=== PATIENT | female | born 1980 | race American Indian/Alaskan Native ===

== ENCOUNTER 2017-05-30 01:44 | Emergency (ER) | payer MEDICAID ==
[2017-05-30 01:55] VITALS: BP 151/93
[2017-05-30] MEDS ORDERED: MOTRIN ONE (05:04)
[2017-05-30] MEDS ORDERED: MOTRIN PO ONE (05:04)
[2017-05-30] MEDS ORDERED: NORCO 10/325 PO ONE (06:12)
[2017-05-30] MEDS ORDERED: ZOFRAN ODT PO ONE (06:12)
--- NOTE | 2017-05-30 06:16 | Emergency Department Report ---
ED ENT HPI - General Chief complaint: Dental/Oral Stated complaint: TOOTHACHE,EAR PAIN Time Seen by Provider: 05/30/17 05:27 Source: patient Mode of arrival: Ambulatory Limitations: No Limitations - History of Present Illness Initial comments: 37-year-old female past medical history obesity, acid reflux, hypertension, Powell 's palsy presents with complaint of right upper toothache. Patient has a severe cavity in this region. Has multiple dental cavities and periodontal disease. Patient is speaking in full sentences no trismus no drooling. Denies fevers or chills. States she has known that she has to address his cavity for some time but has been aching her severely in the last few days. Patient is awake alert and oriented 3. MD complaint: tooth pain Onset/Timin -: days(s) Location: tooth # 1 - severe cavities here Severity: moderate Severity scale (0 -10): 5 Quality: aching Context- Dental: history of dental caries, poor dental care Associated Symptoms: toothache - Related Data Previous Rx's Medication Instructions Recorded Last Taken Type Famotidine [Pepcid] 20 mg PO BID #30 tablet 08/12/15 Unknown Rx HYDROcodone/APAP 5-325 [[place] 1 each PO Q8HR PRN #12 tablet 08/12/15 Unknown Rx 5/325] Acetaminophen/Codeine [Tylenol 1 tab PO Q6H PRN #10 tab 05/30/17 Unknown Rx /Codeine # 3 tab] Amoxicillin [Trimox CAP] 500 mg PO Q8H #30 capsule 05/30/17 Unknown Rx Benzocaine [Orajel Liquid 20%] 1 ml MM Q6HR PRN #1 bottle 05/30/17 Unknown Rx Chlorhexidine Mouthwash [Peridex] 15 ml MM BID #1 bottle 05/30/17 Unknown Rx Ibuprofen [Motrin] 800 mg PO Q8HR PRN #20 tablet 05/30/17 Unknown Rx Allergies Allergy/AdvReac Type Severity Reaction Status Date / Time No Known Allergies Allergy Unverified 08/11/15 16:19 ED Dental HPI - General Chief complaint: Dental/Oral Stated complaint: TOOTHACHE,EAR PAIN Time Seen by Provider: 05/30/17 05:27 Source: patient Mode of arrival: Ambulatory Limitations: No Limitations - Related Data Previous Rx's Medication Instructions Recorded Last Taken Type Famotidine [Pepcid] 20 mg PO BID #30 tablet 08/12/15 Unknown Rx HYDROcodone/APAP 5-325 [[place] 1 each PO Q8HR PRN #12 tablet 08/12/15 Unknown Rx 5/325] Acetaminophen/Codeine [Tylenol 1 tab PO Q6H PRN #10 tab 05/30/17 Unknown Rx /Codeine # 3 tab] Amoxicillin [Trimox CAP] 500 mg PO Q8H #30 capsule 05/30/17 Unknown Rx Benzocaine [Orajel Liquid 20%] 1 ml MM Q6HR PRN #1 bottle 05/30/17 Unknown Rx Chlorhexidine Mouthwash [Peridex] 15 ml MM BID #1 bottle 05/30/17 Unknown Rx Ibuprofen [Motrin] 800 mg PO Q8HR PRN #20 tablet 05/30/17 Unknown Rx Allergies Allergy/AdvReac Type Severity Reaction Status Date / Time No Known Allergies Allergy Unverified 08/11/15 16:19 ED Review of Systems ROS: Stated complaint: TOOTHACHE,EAR PAIN Other details as noted in HPI Constitutional: denies: chills, fever Eyes: denies: eye pain, eye discharge, vision change ENT: dental pain. denies: ear pain, throat pain Respiratory: denies: cough, shortness of breath, wheezing Cardiovascular: denies: chest pain, palpitations Endocrine: no symptoms reported Gastrointestinal: denies: abdominal pain, nausea, diarrhea Genitourinary: denies: urgency, dysuria, discharge Musculoskeletal: denies: back pain, joint swelling, arthralgia Skin: denies: rash, lesions Neurological: denies: headache, weakness, paresthesias Psychiatric: denies: anxiety, depression Hematological/Lymphatic: denies: easy bleeding, easy bruising ED Past Medical Hx - Past Medical History Previous Medical History?: Yes Hx Hypertension: Yes Additional medical history: BELLS PALSY - Surgical History Past Surgical History?: Yes Additional Surgical History: BREAST REDUCTION - Social History Smoking Status: Never Smoker Substance Use Type: None - Medications Home Medications: Home Medications Medication Instructions Recorded Confirmed Last Taken Type Famotidine [Pepcid] 20 mg PO BID #30 tablet 08/12/15 Unknown Rx HYDROcodone/APAP 5-325 [[place] 1 each PO Q8HR PRN #12 tablet 08/12/15 Unknown Rx 5/325] Acetaminophen/Codeine [Tylenol 1 tab PO Q6H PRN #10 tab 05/30/17 Unknown Rx /Codeine # 3 tab] Amoxicillin [Trimox CAP] 500 mg PO Q8H #30 capsule 05/30/17 Unknown Rx Benzocaine [Orajel Liquid 20%] 1 ml MM Q6HR PRN #1 bottle 05/30/17 Unknown Rx Chlorhexidine Mouthwash [Peridex] 15 ml MM BID #1 bottle 05/30/17 Unknown Rx Ibuprofen [Motrin] 800 mg PO Q8HR PRN #20 tablet 05/30/17 Unknown Rx ED Physical Exam - General Limitations: No Limitations General appearance: alert, in no apparent distress - Head Head exam: Present: atraumatic, normocephalic - Eye Eye exam: Present: normal appearance, PERRL, EOMI - ENT ENT exam: Present: mucous membranes moist - Expanded ENT Exam Expanded Teeth exam: Present: dental tenderness # 1 - Dental Tenderness (dental cavities here) - Neck Neck exam: Present: normal inspection - Respiratory Respiratory exam: Present: normal lung sounds bilaterally. Absent: respiratory distress - Cardiovascular Cardiovascular Exam: Present: regular rate, normal rhythm. Absent: systolic murmur, diastolic murmur, rubs, gallop - GI/Abdominal GI/Abdominal exam: Present: soft, normal bowel sounds - Extremities Exam Extremities exam: Present: normal inspection - Back Exam Back exam: Present: normal inspection - Neurological Exam Neurological exam: Present: alert, oriented X3 - Psychiatric Psychiatric exam: Present: normal affect, normal mood - Skin Skin exam: Present: warm, dry, intact, normal color. Absent: rash ED Course Vital Signs 05/30/17 05/30/17 01:46 01:52 Temperature 98.6 F 98.6 F Pulse Rate 99 H 99 H Respiratory 18 17 Rate Blood Pressure 151/93 151/93 O2 Sat by Pulse 96 96 Oximetry ED Medical Decision Making - Medical Decision Making A/P: dental cavities, toothache 1- Motrin when necessary, amoxicillin ten-day course, Orajel when necessary, Peridex mouthwash daily basis, short course codeine when necessary, short course Zofran when necessary 2- I provided patient with information for multiple dental clinics to follow up and stressed the importance of dental follow-up as he has multiple cavities that require dental fixation or instrumentation 3- no clinical signs of facial abscess, no Omid's angina, no induration or cellulitis of floor of mouth or tongue 4- patient able to tolerate by mouth before discharge 5- no signs of facial infection. Advised patient that if she does not take antibiotics with follow-up with a dentist as soon as possible that a can result in potentially serious or dangerous infection to develop in jaw or face. Patient states that he understood these instructions. I advised patient to return to the ED for any persistent unrelenting nausea or vomiting fever or chills or headaches. Critical care attestation.: If time is entered above; I have spent that time in minutes in the direct care of this critically ill patient, excluding procedure time. ED Disposition Clinical Impression: Dental cavities, Toothache Disposition: DC- TO HOME OR SELFCARE Is pt being admited?: No Does the pt Need Aspirin: No Condition: Stable Instructions: Dental Caries (ED), Toothache (ED) Prescriptions: Acetaminophen/Codeine [Tylenol /Codeine # 3 tab] 1 tab PO Q6H PRN #10 tab PRN Reason: Toothache Amoxicillin [Trimox CAP] 500 mg PO Q8H #30 capsule Benzocaine [Orajel Liquid 20%] 1 ml MM Q6HR PRN #1 bottle PRN Reason: Toothache Chlorhexidine Mouthwash [Peridex] 15 ml MM BID #1 bottle Ibuprofen [Motrin] 800 mg PO Q8HR PRN #20 tablet PRN Reason: Toothache Referrals: [facility] [Outside] - 3-5 Days Forms: Accompanied Note, Work/School Release Form(ED) Time of Disposition: 06:16
== END 2017-05-30 06:20 | disposition home or self-care (01) ==
LOC: ED 01:44
DX: K02.9 Dental caries, unspecified (principal); I10 Essential (primary) hypertension
CPT/HCPCS: 99282; Q0162

== ENCOUNTER → 2018-06-13 | Outpatient (CLI) | payer MEDICAID | END | disposition home or self-care (01) | LOC: SLR 11:00 | PROVIDERS: ATTEND Otolaryngology | DX: G47.33 Obstructive sleep apnea (adult) (pediatric) (principal); R40.0 Somnolence; E66.9 Obesity, unspecified; I10 Essential (primary) hypertension | CPT/HCPCS: 95811 ==

== ENCOUNTER 2020-02-11 16:41 | Emergency (ER) | payer MEDICAID ==
[2020-02-11 20:15] VITALS: BP 148/86
--- NOTE | 2020-02-11 20:38 | Emergency Department Report ---
ED Back Pain/Injury HPI - General Chief Complaint: Back Pain/Injury Stated Complaint: BACK PAIN Time Seen by Provider: 02/11/20 20:35 Source: patient Limitations: No Limitations - History of Present Illness Initial Comments: This is a 39-year-old female with no prior medical history sciatica who presents the ED complaining of lower back buttock pain that got worse 2 days ago. Patient describes pain as throbbing aching burning sensation radiating to bilateral thighs. Patient states that she has a sciatica pain for about 16 years. Patient states that pain is about 8 out of 10 intensity and she was worried that it could be her kidneys. Patient also states that she has noted dark-colored urine. She denies fever/dysuria/chest pain/shortness of breath or abdominal pain. MD Complaint: back pain - Related Data Previous Rx's Medication Instructions Recorded Last Taken Type Famotidine [Pepcid] 20 mg PO BID #30 tablet 08/12/15 Unknown Rx HYDROcodone/APAP 5-325 [[place] 1 each PO Q8HR PRN #12 tablet 08/12/15 Unknown Rx 5/325] Amoxicillin [Trimox CAP] 500 mg PO Q8H #30 capsule 05/30/17 Unknown Rx Benzocaine [Orajel Liquid 20%] 1 ml MM Q6HR PRN #1 bottle 05/30/17 Unknown Rx Chlorhexidine Mouthwash [Peridex] 15 ml MM BID #1 bottle 05/30/17 Unknown Rx Acetaminophen/Codeine [Tylenol 1 tab PO Q6H PRN #10 tab 02/11/20 Unknown Rx /Codeine # 3 tab] Ibuprofen [Motrin 800 MG tab] 800 mg PO Q8HR PRN #20 tablet 02/11/20 Unknown Rx Sulfamethoxazole/Trimethoprim 1 each PO BID #14 tablet 02/11/20 Unknown Rx [Bactrim DS TAB] Allergies Allergy/AdvReac Type Severity Reaction Status Date / Time No Known Allergies Allergy Unverified 08/11/15 16:19 ED Review of Systems ROS: Stated complaint: BACK PAIN Other details as noted in HPI Comment: All other systems reviewed and negative ED Past Medical Hx - Past Medical History BELLS PALSY ED Back Pain Physical Exam - Exam General: Vital signs noted. No distress. Alert and acting appropriately. Back/Abdomen: No Abdominal Tenderness, No Perithoracic Tenderness, No Perilumbar Tenderness, No Sacroiliac Tenderness, No Flank Tenderness, No Straight Leg Raise Pain Neuro: Yes Normal Sensation, Yes Normal DTR's, Yes Normal Gait, No Motor Weakness ED Course Vital Signs 02/11/20 17:40 Temperature 97.7 F Pulse Rate 94 H Respiratory 19 Rate Blood Pressure 148/86 O2 Sat by Pulse 94 Oximetry ED Medical Decision Making - Radiology Data 39-year-old female presents to ED with lumbar radiculopathy ED course: Vital signs are normal patient is in no acute distress Discussed with patient follow-up with primary care physician. Discussed the patient and take medications as prescribed. Patient has no neurological deficit. Patient is alert and oriented 3 and understands all instructions given. Discussed follow-up with neurology/orthopedic doctor. Patient has a neurological deficit and understands all instructions given. I discussed with patient if she has any worsening or new symptoms she may return to the ED. Critical care attestation.: If time is entered above; I have spent that time in minutes in the direct care of this critically ill patient, excluding procedure time. ED Disposition Clinical Impression: Lumbar radiculopathy, Sciatica Disposition: - TO HOME OR SELFCARE Is pt being admited?: No Does the pt Need Aspirin: No Condition: Stable Instructions: Radicular Pain, Neuropathic Pain, Sciatica Additional Instructions: Make sure to follow up with the primary care physician as discussed. Take all your medications as you've been prescribed. If you have any worsening symptoms or develop new symptoms please return to ED immediately. Prescriptions: Sulfamethoxazole/Trimethoprim [Bactrim DS TAB] 1 each PO BID #14 tablet Ibuprofen [Motrin 800 MG tab] 800 mg PO Q8HR PRN #20 tablet PRN Reason: Toothache Acetaminophen/Codeine [Tylenol /Codeine # 3 tab] 1 tab PO Q6H PRN #10 tab PRN Reason: Toothache Referrals: PRIMARY MD MARLENE [Primary Care Provider] - 3-5 Days JESSY APARICIO MD [Staff Physician] - 3-5 Days [facility] [Outside] - 3-5 Days [facility] [Provider Group] - 3-5 Days Forms: Work/School Release Form(ED) Time of Disposition: 22:05
== END 2020-02-11 21:00 | disposition home or self-care (01) ==
LOC: ED 16:41
DX: M54.16 Radiculopathy, lumbar region (principal); M54.32 Sciatica, left side; M54.31 Sciatica, right side
CPT/HCPCS: 99281

== ENCOUNTER 2020-06-16 06:05 | Day surgery (SDC) | payer MEDICAID ==
[2020-06-16] MEDS ORDERED: SODIUM CHLORIDE 0.9% 1000 ML 1,000 ML IV SCH (07:00)
[2020-06-16] MEDS ORDERED: WATER FOR IRRIG STERILE 1,000 ML BOTTLE ONE (07:35)
[2020-06-16] MEDS ORDERED: WATER FOR IRRIG STERILE 250 ML BOTTLE IR ONE (07:35)
--- NOTE | 2020-06-16 07:38 | Anesthesia Consultation ---
Anesthesia Consult and Med Hx Date of service: 06/16/20 - Airway Anesthetic Teeth Evaluation: Good ROM Head & Neck: Adequate Mental/Hyoid Distance: Adequate Mallampati Class: Class II Intubation Access Assessment: Probably Good - Pulmonary Exam CTA: Yes - Cardiac Exam Cardiac Exam: RRR - Pre-Operative Health Status ASA Pre-Surgery Classification: ASA3 Proposed Anesthetic Plan: MAC - Pulmonary Hx Sleep Apnea: Yes (cpap) - Central Nervous System Hx Back Pain: Yes - Endocrine Hx Hypothyroidism: Yes
--- NOTE | 2020-06-16 07:40 | Anesthesia Day of Surgery ---
Anesthesia Day of Surgery - Day of Surgery Patient Examined: Yes Patient H&P Reviewed: Yes Patient is NPO: Yes
[2020-06-16] MEDS ORDERED: propofoL 200 MG/20 ML VIAL IV ONE (07:41)
[2020-06-16] MEDS ORDERED: LIDOCAINE MPF (2%) 20 MG/1 ML VIAL 5 ML ONE (07:43)
[2020-06-16] MEDS ORDERED: KETAMINE/STERILE WATER 50 MG/ML SYRINGE ONE (07:43)
[2020-06-16] MEDS ORDERED: MIDAZOLAM 2 MG/2 ML INJ ONE (07:43)
--- NOTE | 2020-06-16 08:04 | Operative Report ---
Operative Report Operative Report: DATE: 06/16/2020 SURGERY: Upper endoscopy. SURGEON: Jeremías Galicia M.D. PROCEDURE: EGD with biopsy PRE OP DX: morbid obesity, GERD POST OP DX: morbid obesity, GERD TYPE OF ANESTHESIA: MAC. ESTIMATED BLOOD LOSS: None. COMPLICATIONS: None. SPECIMENS REMOVED: antral biopsy FINDINGS: 1. Small hiatal hernia. 2. antral gastritis INDICATIONS:INDICATION FOR PROCEDURE: Patient is a 40-year-old female with a long history of morbid obesity. She is planned to have a weight loss procedure and is here for preoperative planning EGD. PROCEDURE DETAILS: After consent was reviewed, patient was taken back to the operating room where patient was placed in the left lateral decubitus position and a bite block was placed in the mouth. After a time-out was called, MAC anesthesia was initiated. I then passed the endoscope into her oropharynx, into her esophagus, visualized the entire esophagus, which was all within normal limits. Z-line was noted to about 40cm from incisors. I then visualized the stomach and the first portion of the duodenum and there were no abnormalities I could clearly visualize except for antral gastritis. A cold forceps biopsy of the antrum was taken and will be sent to pathology to evaluate for H.pylori. I then retroflexed the scope in the stomach and visualized the hiatus and I could see a small hiatal hernia. I then desufflated the stomach and removed the endoscope. Patient tolerated procedure well and was transferred to recovery room in good and stable condition.
--- NOTE | 2020-06-16 08:06 | Discharge Summary ---
Providers - Providers Date of Admission: 06/16/2020 Date of discharge: 06/16/20 Attending physician: ROOPA STEWART MD Primary care physician: ACCOUNTING CLERK Hospitalization Reason for admission: pre-op egd fo bariatric surgery Condition: Good Procedures: egd w/bx Hospital course: Pt presented for a pre-op EGD as part of planning for up coming bariatric surgery. Procedure was uneventful and pt recovered well and was discharged to home. Disposition: DC- TO HOME OR SELFCARE Final Discharge Diagnosis (Prints w/discharge instructions): morbid obesity, gerd Core Measure Documentation - Palliative Care Palliative Care/ Comfort Measures: Not Applicable - Core Measures Any of the following diagnoses?: none Exam - Physical Exam Narrative exam: unchanged from pre-op Plan Activity: advance as tolerated Diet: low carbohydrate Follow up with: PRIMARY MD MARLENE [Primary Care Provider] - 7 Days
[2020-06-16 08:18] VITALS: BP 146/90
--- NOTE | 2020-06-16 09:11 | Post Anesthesia Evaluation ---
- Post Anesthesia Evaluation Patient Participated: Yes Airway Patent: Yes Stable Respiratory Function: Yes Nausea/Vomiting: No Temp > 96.8F: Yes Pain Manageable: Yes Adequeate Hydration: Yes Anesthesia Complications: No
== END 2020-06-16 06:06 | disposition home or self-care (01) ==
LOC: GIO 06:05
PROVIDERS: ATTEND Surgery
DX: K21.9 Gastro-esophageal reflux disease without esophagitis (principal); E66.01 Morbid (severe) obesity due to excess calories; K44.9 Diaphragmatic hernia without obstruction or gangrene; K29.50 Unspecified chronic gastritis without bleeding; B96.81 Helicobacter pylori [H. pylori] as the cause of diseases classified elsewhere; G47.30 Sleep apnea, unspecified; E03.9 Hypothyroidism, unspecified; Z98.890 Other specified postprocedural states; Z79.899 Other long term (current) drug therapy; Z68.43 Body mass index [BMI] 50.0-59.9, adult
CPT/HCPCS: 43239; 81025; 88305; 88342; J2250; J2704; J3490; J7030

== ENCOUNTER 2020-06-17 10:43 | Outpatient (CLI) | payer MEDICAID ==
[2020-06-17 11:20] LABS: Basophils % (Auto) 0.3 % (0.0-1.8); Eosinophils # (Auto) 0.1 K/mm3 (0.0-0.4); Eosinophils % (Auto) 1.5 % (0.0-4.3); Hematocrit 34.9 % (30.3-42.9); Hemoglobin 11.2 gm/dl (10.1-14.3); Lymphocytes # (Auto) 1.6 K/mm3 (1.2-5.4); Lymphocytes % (Auto) 37.7 % (13.4-35.0); Mean Corpuscular HGB Conc 32 % (30-34); Monocytes # (Auto) 0.3 K/mm3 (0.0-0.8); Monocytes % (Auto) 6.5 % (0.0-7.3); Platelet Count 289 K/mm3 (140-440); Red Blood Count 5.25 M/mm3 (3.65-5.03)
[2020-06-17 11:21] LABS: Mean Corpuscular Volume 67 fl (79-97)
[2020-06-17 11:41] LABS: % Iron Saturation 8.55 %; Alanine Aminotransferase 8 units/L (7-56); Albumin 3.2 g/dL (3.9-5); BUN/Creatinine Ratio 11; Blood Urea Nitrogen 9 mg/dL (7-17); Calcium 8.3 mg/dL (8.4-10.2); Chol/HDL Ratio 4.35 %; HDL Cholesterol 37 mg/dL (40-59); Hemolysis Index 4; Iron 30 ug/dL (37-170); LDL Cholesterol,Direct 120 mg/dL (50-130); Total Iron Binding Capacity 351 mcg/dL (250-450)
== END 2020-06-17 10:44 | disposition home or self-care (01) ==
LOC: LAB 10:43
PROVIDERS: ATTEND Surgery
DX: E11.9 Type 2 diabetes mellitus without complications (principal); K30 Functional dyspepsia; E66.01 Morbid (severe) obesity due to excess calories
CPT/HCPCS: 36415; 80053; 80061; 82306; 82607; 82728; 83036; 83550; 84443; 85025; 85730

== ENCOUNTER 2020-10-01 10:16 | Outpatient (CLI) | payer MEDICAID ==
[2020-10-01 11:17] LABS: Basophils % (Auto) 0.6 % (0.0-1.8); Eosinophils # (Auto) 0.1 K/mm3 (0.0-0.4); Eosinophils % (Auto) 1.4 % (0.0-4.3); Hematocrit 34.3 % (30.3-42.9); Hemoglobin 10.9 gm/dl (10.1-14.3); Lymphocytes # (Auto) 2.1 K/mm3 (1.2-5.4); Lymphocytes % (Auto) 41.8 % (13.4-35.0); Mean Corpuscular HGB Conc 32 % (30-34); Monocytes # (Auto) 0.4 K/mm3 (0.0-0.8); Monocytes % (Auto) 7.8 % (0.0-7.3); Platelet Count 266 K/mm3 (140-440); Red Blood Count 5.02 M/mm3 (3.65-5.03)
[2020-10-01 11:25] LABS: Alanine Aminotransferase 11 units/L (7-56); Albumin 3.5 g/dL (3.9-5); Blood Urea Nitrogen 7 mg/dL (7-17); Calcium 9.3 mg/dL (8.4-10.2); Hemolysis Index 3; Iron 30 ug/dL (37-170)
[2020-10-01 11:27] LABS: BUN/Creatinine Ratio 10
[2020-10-01 11:41] LABS: Mean Corpuscular Volume 68 fl (79-97); Red Cell Distribution Width 20.6 % (13.2-15.2)
[2020-10-01 12:02] LABS: INR 1.28 (0.87-1.13)
[2020-10-01 12:03] LABS: Partial Thromboplastin Time 24.3 Sec. (24.2-36.6)
== END 2020-10-01 10:17 | disposition home or self-care (01) ==
LOC: LAB 10:16
PROVIDERS: ATTEND Internal Medicine
DX: Z01.810 Encounter for preprocedural cardiovascular examination (principal); E11.9 Type 2 diabetes mellitus without complications; E61.1 Iron deficiency; E03.9 Hypothyroidism, unspecified; E66.01 Morbid (severe) obesity due to excess calories
CPT/HCPCS: 36415; 80053; 82652; 82728; 83036; 83540; 84443; 85025; 85610; 85730

== ENCOUNTER 2020-12-07 09:17 | Outpatient (CLI) | payer MEDICAID ==
--- NOTE | 2020-12-07 11:13 | XRay Report ---
CHEST 2 VIEWS INDICATION / CLINICAL INFORMATION: MORBID OBESITY. COMPARISON: None available. FINDINGS: SUPPORT DEVICES: None. HEART / MEDIASTINUM: No significant abnormality. LUNGS / PLEURA: No significant pulmonary or pleural abnormality. No pneumothorax. ADDITIONAL FINDINGS: No significant additional findings. IMPRESSION: 1. No acute findings. Signer Name: Alejandro Caraballo MD Signed: 12/07/2020 11:09 AM Workstation Name: [id number]
--- NOTE | 2020-12-07 11:48 | Fluoroscopy Report ---
BARIUM SWALLOW Indication: MORBID OBESITY. Technique: Single and double contrast barium technique utilized to evaluate the esophagus. FINDINGS: To begin the exam, swallowing was evaluated in the lateral position under direct fluorosco py. Swallowing was normal. No mucosal irregularity, mass, mass effect, or critical stenosis. There were no abnormal tertiary c ontractions as seen with dysmotility. No gastroesophageal reflux. IMPRESSION: Unremarkable exam. Fluoroscopic time: 0.7 minutes Number of fluoroscopic images: 20 Signer Name: Robin Sheridan Jr, MD Signed: 12/07/2020 11:43 AM Workstation Name: [id number]
== END 2020-12-07 09:18 | disposition home or self-care (01) ==
LOC: FLUORO 09:17
PROVIDERS: ATTEND Surgery
DX: E66.01 Morbid (severe) obesity due to excess calories (principal)
CPT/HCPCS: 71046; 74220

== ENCOUNTER 2021-03-22 09:15 | Inpatient (IN) | payer MEDICAID ==
[2021-03-18 11:29] LABS: Hematocrit 38.7 % (30.3-42.9); Hemoglobin 12.2 gm/dl (10.1-14.3); Mean Corpuscular HGB Conc 31 % (30-34); Platelet Count 259 K/mm3 (140-440); Red Blood Count 5.58 M/mm3 (3.65-5.03); Red Cell Distribution Width 19.6 % (13.2-15.2)
[2021-03-18 11:30] LABS: Mean Corpuscular Volume 69 fl (79-97)
[2021-03-18 11:47] LABS: Alanine Aminotransferase 16 units/L (7-56); Albumin 3.8 g/dL (3.9-5); Blood Urea Nitrogen 10 mg/dL (7-17); Calcium 8.7 mg/dL (8.4-10.2); Hemolysis Index 0
[2021-03-18 12:02] LABS: BUN/Creatinine Ratio 14
--- NOTE | 2021-03-18 13:53 | Anesthesia Consultation ---
Anesthesia Consult and Med Hx Date of service: 03/22/21 - Airway Anesthetic Teeth Evaluation: Poor (Broken) ROM Head & Neck: Adequate Mental/Hyoid Distance: Adequate Mallampati Class: Class IV Intubation Access Assessment: Possibly Difficult - Pre-Operative Health Status ASA Pre-Surgery Classification: ASA3 Proposed Anesthetic Plan: General - Pulmonary Hx Smoking: No (Used to vape) Hx Respiratory Symptoms: No (+2FS; walks daily) Hx Sleep Apnea: Yes - Cardiovascular System Hx Hypertension: Yes Hx Coronary Artery Disease: No - Central Nervous System Hx Back Pain: Yes Hx Psychiatric Problems: No - Gastrointestinal Hx Gastroesophageal Reflux Disease: Yes (with tomato sauce) - Endocrine Hx Non-Insulin Dependent Diabetes: Yes (PRE) Hx Thyroid Disease: Yes Hx Hypothyroidism: Yes - Hematic Hx Anemia: Yes - Other Systems Hx Alcohol Use: Yes (Occas) Hx Cancer: No Hx Obesity: Yes - Additional Comments Anesthesia Medical History Comments: Chart/clearances reviewed
[~2021-03-22 09:15] MED LIST: ACETAMINOPHEN IV 1,000 MG/100 ML BOTTLE IV NR; ENOXAPARIN 40 MG/0.4 ML INJ SUB-Q NR; GABAPENTIN 500 MG/10 ML ORAL LIQD PO NR; LACTATED RINGERS 1,000 ML IV SCH; MIDAZOLAM 2 MG/2 ML INJ IV NR; SCOPOLAMINE TRANSDERMAL PATCH 72 HR TD NR; methOCARBAMOL 1,000 MG in SODIUM CHLORIDE 0.9% 250ML 250 ML IV ONE; metroNIDAZOLE/NS 500 MG/100 ML 500 MG/100 ML BAG IV NR
[2021-03-22] MEDS ORDERED: ONDANSETRON 4 MG/2 ML INJ IV PRN (09:24)
--- NOTE | 2021-03-22 09:24 | Anesthesia Day of Surgery ---
Anesthesia Day of Surgery - Day of Surgery Patient Examined: Yes Patient H&P Reviewed: Yes Patient is NPO: Yes
[2021-03-22] MEDS ORDERED: BUPIVACAINE/PF (0.25%) 2.5 MG/ML 30 ML VIAL INFILTRATI ONE ×2 (11:02→15:03)
[2021-03-22] MEDS ORDERED: LIDOCAINE 2%/EPINEPHRINE 1:100,000 VIAL (20 ML) INFILTRATI ONE (11:02)
[2021-03-22] MEDS ORDERED: LIDOCAINE 1%/EPINEPHRINE 1:100,000 VIAL (20 ML) INFILTRATI ONE (11:03)
[2021-03-22] MEDS ORDERED: SUGAMMADEX SODIUM 200 MG/2 ML VIAL IV ONE (13:53)
[2021-03-22] MEDS ORDERED: MAGNESIUM SULFATE 4 GM/100 ML BAG IV ONE (13:54)
[2021-03-22] MEDS ORDERED: ROCURONIUM 50 MG/5 ML INJ IV ONE (13:58)
[2021-03-22] MEDS ORDERED: LIDOCAINE MPF (2%) 20 MG/1 ML VIAL 5 ML ONE (13:58)
[2021-03-22] MEDS ORDERED: ONDANSETRON 4 MG/2 ML INJ ONE (13:58)
[2021-03-22] MEDS ORDERED: dexAMETHasone 20 MG/5 ML VIAL ONE (13:58)
[2021-03-22] MEDS ORDERED: KETOROLAC 30 MG/1 ML INJ ONE (13:58)
[2021-03-22] MEDS ORDERED: KETAMINE/STERILE WATER 50 MG/ML SYRINGE ONE (14:10)
[2021-03-22] MEDS ORDERED: MIDAZOLAM 2 MG/2 ML INJ ONE (14:58)
[2021-03-22] MEDS ORDERED: LIDOCAINE (1%) 10 MG/1 ML VIAL 20 ML MDV INFILTRATI ONE (15:03)
[2021-03-22] MEDS ORDERED: SODIUM CHLORIDE 0.9% IRR 1,500 ML BOTTLE IR ONE (15:03)
[2021-03-22] MEDS ORDERED: propofoL 200 MG/20 ML VIAL IV ONE ×2 (15:48)
[2021-03-22] MEDS ORDERED: METOCLOPRAMIDE 10 MG/2 ML INJ IV PRN (16:28)
[2021-03-22] MEDS ORDERED: MORPHINE 2 MG/1 ML INJ IV PRN (16:28)
[2021-03-22] MEDS ORDERED: hydrALAZINE 20 MG/1 ML INJ IV PRN (16:28)
[2021-03-22] MEDS ORDERED: HYDROmorphone 1 MG/1 ML INJ IV PRN (16:28)
[2021-03-22] MEDS ORDERED: HYDROcodone/Acetaminophen 7.5-325MG-15ML ORAL LIQD PO PRN (16:28)
[2021-03-22] MEDS ORDERED: SIMETHICONE 80 MG CHEW TAB PO PRN (16:28)
--- NOTE | 2021-03-22 16:39 | Operative Report ---
Operative Report Operative Report: DATE:03/22/2021 Surgeon: Jeremías Galicia MD Outside Medical Sales Representative surgeon: Lizzeth Krishna CSA MD Pre-op Dx: morbid obesity Post-op Dx: morbid obesity Procedure: 1. laparoscopic sleeve gastrectomy, Anesthesia: GETA, TAP block EBL: <10ml Specimen: gastric remnant Complication: none immediate Indication: 40 year old female with a history of morbid obesity . Pt is here for sleeve gastrectomy for weight loss to achieve healthier weight and improve or resolve her co-morbidities. She expressed understanding of the risks and benefits. PROCEDURE IN DETAIL: After consent was reviewed, patient was taken back to the operating room, where patient was placed supine on the bed with both arms out. The patient's legs were doubly strapped to the bed. Patient had a foot board in place. Patient had a body warmer placed by anesthesia. General anesthesia was induced with successful endotracheal intubation. Patient was then prepped and draped in normal sterile surgical fashion. After a time-out was called, I made a stab incision in the left subcostal area and placed a Veress needle through this incision and insufflated the abdomen to 18 mmHg pressure. I then counted down a handsbreadth below the xiphoid process in the midline and slightly left lateral injected local anesthetic and made about 1 cm transverse incision. I then used a 5-mm Optiview trocar to enter into the abdomen. There was no gross injury to any intra-abdominal structures. I then placed a 30-degree scope through this port and inspected the abdomen. I then placed a 5-mm port in the right upper quadrant, and 1 epigastric area below the costovertebral angle. I then placed a 15-mm port about a handsbreadth in the right mid abdomen. After which a 5mm port was placed in left upper quadrant port along the anterior axillary line in a similar fashion. A liver retractor was placed to the epigastric port to elevate the left lateral lobe and liver. The anterior gastric fat pad was excised. Starting approximately 6 cm proximal to the pylorus, using an enseal device the short gastrics were taken all the way to the left randall. Once the lateral portion of the stomach was mobile anesthesia passed a 40 Maori bougie along the medial aspect to act as a stent. Using serial firings of endoscopic stapler to gold, followed by 4 blue, the lateral portion of the stomach was transected making sure to did not close to the 2 cm to the incisura. All staple loads were supported with Ethicon buttress strips. The sleeve stomach was seen to be wit hout kink obstruction or twisting. The pressure was decreased to 10 mmHg. The staple line was inspected for approximately 5 minutes. There was no significant bleeding appreciated except for a slight loose at the most distal portion of the staple line. Bleeding was minimal and easily controlled with minimal cautery. Vistaseal was then sprayed along the entirety of the staple line. The liver retractor was removed. This was after the gastric remnant was grasped and pulled into the 15 mm trocar site. The stomach was extracted via the 15 mm trocar site. After the fascia had to be stretched with a Catie clamp to easily remove the stomach, the fascia was closed using a erwin ronda device at the level of the fascia with an 0 PDS. trocars were removed under direct visualization. A TAP block was performed in transverse abdominis plane at the mid axillary line bilaterally using 60cc of 0.25% marcaine. All skin incisions were closed with 4-0 Monocryl followed by Dermabond. Patient was awoken, extubated, and taken to recovery stable condition. All counts were correct.
[2021-03-22] MEDS: HYDROmorphone 1 MG/1 ML INJ IV PRN ×2 (16:40→16:50)
[2021-03-22] MEDS ORDERED: metroNIDAZOLE/NS 500 MG/100 ML 500 MG/100 ML BAG IV SCH ×2 (17:00→18:00)
[2021-03-22] MEDS ORDERED: ceFAZolin/NS 1 GM/50 ML 1 GM/50 ML BAG IV SCH (17:00)
[2021-03-22] MEDS: ONDANSETRON 4 MG/2 ML INJ IV PRN (17:27)
[2021-03-22] MEDS: metroNIDAZOLE/NS 500 MG/100 ML 500 MG/100 ML BAG IV SCH (21:15)
[2021-03-22] MEDS: ACETAMINOPHEN IV 1,000 MG/100 ML BOTTLE IV SCH ×2 (21:44→23:17)
[2021-03-22] MEDS: PANTOPRAZOLE 40 MG INJ IV SCH (23:27)
[2021-03-22] MEDS: ceFAZolin/NS 1 GM/50 ML 1 GM/50 ML BAG IV SCH (23:40)
[2021-03-22] MEDS: KETOROLAC 30 MG/1 ML INJ IV SCH ×2 (23:52→23:56)
[2021-03-23] MEDS: ONDANSETRON 4 MG/2 ML INJ IV PRN (00:09)
[2021-03-23] MEDS ORDERED: metroNIDAZOLE/NS 500 MG/100 ML 500 MG/100 ML BAG IV SCH (01:00)
[2021-03-23] MEDS: ACETAMINOPHEN IV 1,000 MG/100 ML BOTTLE IV SCH ×4 (03:14→16:16)
[2021-03-23] MEDS: metroNIDAZOLE/NS 500 MG/100 ML 500 MG/100 ML BAG IV SCH ×2 (03:16→09:25)
[2021-03-23 05:59] LABS: Basophils % (Auto) 0.1 % (0.0-1.8); Lymphocytes # (Auto) 0.5 K/mm3 (1.2-5.4); Lymphocytes % (Auto) 7.9 % (13.4-35.0); Mean Corpuscular HGB Conc 30 % (30-34); Mean Corpuscular Volume 71 fl (79-97); Monocytes # (Auto) 0.2 K/mm3 (0.0-0.8); Monocytes % (Auto) 3.3 % (0.0-7.3); Platelet Count 246 K/mm3 (140-440); Red Blood Count 5.32 M/mm3 (3.65-5.03)
[2021-03-23 06:03] LABS: Hematocrit 37.8 % (30.3-42.9); Hemoglobin 11.5 gm/dl (10.1-14.3)
[2021-03-23 06:14] LABS: Alanine Aminotransferase 21 units/L (7-56); Albumin 3.5 g/dL (3.9-5); BUN/Creatinine Ratio 9; Blood Urea Nitrogen 8 mg/dL (7-17); Calcium 8.8 mg/dL (8.4-10.2); Hemolysis Index 0
[2021-03-23] MEDS: KETOROLAC 30 MG/1 ML INJ IV SCH ×4 (06:23→23:09)
--- OUTSIDE RECORDS SUMMARY | 2021-03-23 06:34 | External Medical Summary ---
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 Problem Type 2 E11.9 Active confirmed 567878462 diabetes mellitus without complications Problem Dietary Z71.3 Active confirmed [id number] counseling and surveillance Problem Hypothyroidis E03.9 Active confirmed 579815 08 m, unspecified Problem Sleep apnea, G47.30 Active confirmed 6161359 6 unspecified Problem Morbid E66.01 Active confirmed 328941743 (severe) obesity due to excess calories Problem Gastro-esopha K21.9 Active confirmed 205669 005 geal reflux disease without esophagitis ALLERGIES No Known Allergies ENCOUNTERS from 1980 to 2021-03-19 Encounter Location Date Provider Diagnosis [address] Feb, [facility] [place] [address] IMMUNIZATIONS No Information SOCIAL HISTORY Sex Assigned At : Social History Observation Description Sex Assigned At Unknown REASON FOR REFERRAL from 1980 to 2021-03-19 Reason Gastric Sleeve Diagnosis 1 Morbid (severe) obesity due to excess calories (E66.01) Diagnosis 2 Hypothyroidism, unspecified (E03.9) Diagnosis 3 Sleep apnea, unspecified (G4 7.30) Diagnosis 4 Gastro-esophageal reflux dis ease without esophagitis (K21.9) Diagnosis 5 Functional dyspepsia (K30) Diagnosis 6 Type 2 diabetes mellitus wit hout complications (E11.9) Diagnosis 7 Pain in right hip (M25.551) Diagnosis 8 Pain in left hip (M25.552) Diagnosis 9 Iron deficiency (E61.1) Diagnosis 10 Low back pain (M54.5) Referral Organization [facility] Referring Provider First Name Jeremías Referring Provider Last Name Grayson Referring Provider Specialty Surgery Referred Provider [facility], - Referral Priority Routine VITAL SIGNS No information MEDICATIONS Medication SIG (Take, Route, Notes Start Date End Date Status Frequency, Duration) Ketoconazole 2 % 1 application Activ e Externally Once a day for 14 day(s) HYDROcodone-Acetaminophen 15 ml as needed Feb, Feb, Active 7.5-325 MG Orally every 6 hrs for 7 days Ondansetron 4 MG 1 tablet on the Feb, A ctive tongue and allow to dissolve Orally every four hours for 30 day(s) Omeprazole 20 MG 1 capsule Orally May, Active twice a day (bid) for 14 day(s) Iron (Ferrous Sulfate) 1 tablet Orally Twice Sep, Active 325 (65 Fe) MG a day for 30 day(s) Hydrocortisone 1 % 1 application Act jermaine Externally Once a day for 15 days HYDROcodone-Acetaminophen 15 ml as needed Feb, Feb, Active 7.5-325 MG/15ML Orally every 6 hrs for 7 days KEY ACCOUNT COORDINATOR Thyroid 60 MG 1 tablet on an empty Active stomach Orally Once a day for 30 day(s) Omeprazole 40 MG 1 capsule 30 minutes Feb, Active before morning meal Orally Once a day for 30 day(s) PROCEDURES No Information RESULTS No Results REASON FOR VISIT No Information MEDICAL (GENERAL) HISTORY Type Description Date Medical History hypothyroid Medical History sleep apnea Medical History back pain Surgical History breast reduction 2004 Goals Section No Information Health Concerns No Information MEDICAL EQUIPMENT No Information MENTAL STATUS No Information FUNCTIONAL STATUS No Information ASSESSMENTS No Information PLAN OF TREATMENT Medication Medication Name Sig Start Date Stop Date Ondansetron 4 MG 1 tablet on the tongue and Feb, allow to dissolve Orally every four hours for 30 day(s) HYDROcodone-Acetaminophen 15 ml as needed Orally every Feb, 2 022 Feb, 7.5-325 MG/15ML 6 hrs for 7 days HYDROcodone-Acetaminophen 15 ml as needed Orally every Feb, 2 022 Feb, 7.5-325 MG 6 hrs for 7 days Omeprazole 40 MG 1 capsule 30 minutes before Feb, morning meal Orally Once a day for 30 day(s) Referrals Referral Date Details Gastric Sleeve Next Appt Details Provider Name:Jeremías Galicia, 2021-02- 1 10:30:00 AM, [address] [place] [address], [place], [address], Insurance Providers Payer Payer Payer Insured Patient Coverage Coverage Subscriber Elayne up Name Address Phone Name Relationship Start End Date Number Nu mber to Insured Date [facility] [phone] [place], orly [id number] [employer] [facility] [id number] [address] [facility] [id number]
[2021-03-23] MEDS: LACTATED RINGERS 1,000 ML IV SCH ×2 (06:41→22:19)
[2021-03-23] MEDS: ceFAZolin/NS 1 GM/50 ML 1 GM/50 ML BAG IV SCH (07:51)
[2021-03-23] MEDS: PANTOPRAZOLE 40 MG INJ IV SCH (09:25)
[2021-03-23] MEDS: ENOXAPARIN 40 MG/0.4 ML INJ SUB-Q SCH (09:25)
[2021-03-23] MEDS ORDERED: DEXTROSE 50% IN WATER (25GM) 50 ML SYRINGE IV PRN (09:32)
[2021-03-23] MEDS ORDERED: THYROID PO SCH (10:00)
[2021-03-23] MEDS ORDERED: NORETHINDRONE 0.35 MG PO SCH (10:00)
[2021-03-23] MEDS ORDERED: DEXTROSE 10% *Hypoglycemia IV PRN (10:00)
[2021-03-23] MEDS: INSULIN REGULAR, HUMAN 100 UNITS/1 ML SUB-Q SCH ×3 (10:51→22:30)
[2021-03-23] MEDS: THYROID,PORCINE 60 MG TAB PO SCH (11:45)
--- NOTE | 2021-03-23 14:16 | Post Anesthesia Evaluation ---
- Post Anesthesia Evaluation Patient Participated: Yes Airway Patent: Yes Stable Respiratory Function: Yes Nausea/Vomiting: No Temp > 96.8F: Yes Pain Manageable: Yes (with pain meds) Adequeate Hydration: Yes Anesthesia Complications: No Block Receding Appropriately: Not Applicable Patient on Ventilator: No
--- NOTE | 2021-03-23 15:29 | Progress Note ---
Assessment and Plan POD#1 s/p lap gastric sleeve. Afebrile and stable but abdominal pain that is inhibiting pt from drinking enough. Will continue to observe and check labs in am. Subjective Date of service: 03/23/21 Narrative: No acute events overnight. Pt complains of abdominal pain in the epigastric and right side. Said it is worse when she drinks. Denies any nausea or vomiting. Not drinking enough due to discomfort. Objective Vital Signs - 12hr 03/23/21 03/23/21 03/23/21 03:56 08:54 09:24 Temperature 98.1 F 98.7 F Pulse Rate 105 H 94 H Respiratory 20 18 Rate Blood Pressure 113/69 118/75 O2 Sat by Pulse 94 97 90 Oximetry - General physical appearance well developed, no distress, moderate pain, obese - Respiratory normal expansion, normal respiratory effort - Abdomen soft, other (incisions c/d/i, tender to palpation in the epigastric and right side.) - Labs 03/23/21 04:25 03/23/21 04:25 Diabetes panel 03/23/21 Range/Units 04:25 Sodium 138 (137-145) mmol/L Potassium 4.6 D (3.6-5.0) mmol/L Chloride 103.5 (98-107) mmol/L Carbon Dioxide 22 (22-30) mmol/L BUN 8 (7-17) mg/dL Creatinine 0.9 (0.6-1.2) mg/dL Glucose 244 H (65-100) mg/dL Calcium 8.8 (8.4-10.2) mg/dL AST 18 (5-40) units/L ALT 21 (7-56) units/L Alkaline Phosphatase 63 (35-129) units/L Total Protein 7.1 (6.3-8.2) g/dL Albumin 3.5 L (3.9-5) g/dL Calcium panel 03/23/21 Range/Units 04:25 Calcium 8.8 (8.4-10.2) mg/dL Albumin 3.5 L (3.9-5) g/dL Pituitary panel 03/23/21 Range/Units 04:25 Sodium 138 (137-145) mmol/L Potassium 4.6 D (3.6-5.0) mmol/L Chloride 103.5 (98-107) mmol/L Carbon Dioxide 22 (22-30) mmol/L BUN 8 (7-17) mg/dL Creatinine 0.9 (0.6-1.2) mg/dL Glucose 244 H (65-100) mg/dL Calcium 8.8 (8.4-10.2) mg/dL Adrenal panel 03/23/21 Range/Units 04:25 Sodium 138 (137-145) mmol/L Potassium 4.6 D (3.6-5.0) mmol/L Chloride 103.5 (98-107) mmol/L Carbon Dioxide 22 (22-30) mmol/L BUN 8 (7-17) mg/dL Creatinine 0.9 (0.6-1.2) mg/dL Glucose 244 H (65-100) mg/dL Calcium 8.8 (8.4-10.2) mg/dL Total Bilirubin 0.20 (0.1-1.2) mg/dL AST 18 (5-40) units/L ALT 21 (7-56) units/L Alkaline Phosphatase 63 (35-129) units/L Total Protein 7.1 (6.3-8.2) g/dL Albumin 3.5 L (3.9-5) g/dL
[2021-03-24] MEDS: INSULIN REGULAR, HUMAN 100 UNITS/1 ML SUB-Q SCH ×2 (04:14→11:19)
[2021-03-24 05:11] LABS: Basophils % (Auto) 0.9 % (0.0-1.8); Eosinophils % (Auto) 0.2 % (0.0-4.3); Lymphocytes # (Auto) 2.4 K/mm3 (1.2-5.4); Lymphocytes % (Auto) 41.4 % (13.4-35.0); Mean Corpuscular HGB Conc 30 % (30-34); Mean Corpuscular Volume 70 fl (79-97); Monocytes # (Auto) 0.5 K/mm3 (0.0-0.8); Platelet Count 226 K/mm3 (140-440); Red Blood Count 4.82 M/mm3 (3.65-5.03); Red Cell Distribution Width 19.9 % (13.2-15.2)
[2021-03-24 05:14] LABS: Alanine Aminotransferase 14 units/L (7-56); Albumin 3.3 g/dL (3.9-5); BUN/Creatinine Ratio 14; Blood Urea Nitrogen 11 mg/dL (7-17); Calcium 8.2 mg/dL (8.4-10.2); Hemolysis Index 0
[2021-03-24 05:23] LABS: Hematocrit 33.8 % (30.3-42.9); Hemoglobin 10.3 gm/dl (10.1-14.3)
[2021-03-24] MEDS: KETOROLAC 30 MG/1 ML INJ IV SCH (05:49)
[2021-03-24] MEDS: LACTATED RINGERS 1,000 ML IV SCH (05:58)
[2021-03-24] MEDS: PANTOPRAZOLE 40 MG INJ IV SCH (09:18)
[2021-03-24] MEDS: ENOXAPARIN 40 MG/0.4 ML INJ SUB-Q SCH (09:18)
[2021-03-24] MEDS: THYROID,PORCINE 60 MG TAB PO SCH (09:20)
--- NOTE | 2021-03-24 09:25 | Discharge Summary ---
Providers - Providers Date of Admission: 03/22/21 09:15 Date of discharge: 03/24/21 Attending physician: ROOPA STEWART MD 03/22/21 16:28 Physical Therapy Evaluation and Treat [CONS] Routine Comment: Reason For Exam: s/p bariatric surgery Primary care physician: CARMELITA HERNANDEZ Hospitalization Reason for admission: Status post laparoscopic sleeve gastrectomy Condition: Good Procedures: Laparoscopic gastric sleeve Hospital course: Patient had an uneventful laparoscopic sleeve gastrectomy for the treatment of morbid obesity. Patient was recovering slowly initially with abdominal pain that was preventing her from drinking enough. By postoperative day #2 she was drinking sufficient oral liquids. She maintained afebrile and normal vital signs. She had laboratory values that were within acceptable limits. Patient was sent home on postop day #2 showing no gross clinical signs of leak or bleeding. Patient is to follow-up in the office in 2 weeks. Disposition: 01 HOME / SELF CARE / HOMELESS Final Discharge Diagnosis (Prints w/discharge instructions): Morbid obesity, sleep apnea, diabetes Core Measure Documentation - Palliative Care Palliative Care/ Comfort Measures: Not Applicable - Core Measures Any of the following diagnoses?: none Exam - Constitutional Vitals: Temp Pulse Resp BP Pulse Ox 97.9 F 72 20 111/69 91 03/24/21 07:48 03/24/21 07:48 03/24/21 07:48 03/24/21 07:48 03/24/21 07:48 General appearance: Present: no acute distress, obese - EENT Eyes: Present: PERRL ENT: hearing intact, clear oral mucosa - Respiratory Respiratory effort: normal - Cardiovascular Heart Sounds: Present: S1 & S2. Absent: rub, click - Extremities Extremities: pulses symmetrical, No edema - Abdominal General gastrointestinal: Present: other (Soft, incisions clean dry and intact, appropriately tender to palpation) Plan Activity: advance as tolerated Diet: clear liquids Wound: open to air, keep clean and dry Follow up with: CARMELITA HERNANDEZ MD [Primary Care Provider] - 7 Days
[2021-03-24 11:22] VITALS: BP 137/83
[2021-03-25] MEDS ORDERED: SCOPOLAMINE TRANSDERMAL PATCH 72 HR TD SCH (10:00)
[2021-03-25] MEDS ORDERED: THYROID,PORCINE 60 MG TAB PO SCH (10:00)
== END 2021-03-24 16:43 | disposition home or self-care (01) | DRG 621 ==
LOC: 3A 09:15 → 4A 19:19
PROVIDERS: ADMIT Surgery; ATTEND Surgery
PROC: 0DB64Z3 Excision of Stomach, Percutaneous Endoscopic Approach, Vertical (ICD-10-PCS; principal; 2021-03-22)
DX: E66.01 Morbid (severe) obesity due to excess calories (principal); Z68.43 Body mass index [BMI] 50.0-59.9, adult; I10 Essential (primary) hypertension; E11.9 Type 2 diabetes mellitus without complications; Z20.822 Contact with and (suspected) exposure to COVID-19
CPT/HCPCS: 36415; 80053; 82962; 83036; 84703; 85025; 85027; 88307; 88342; 94760; G0378; J3490; J7120; J7121; J7517; Q9967; C9113; J0131; J0690; J1100; J1170; J1650; J1815; J1885; J2250; J2405; J2704; J2765; J3475; U0003